=== PATIENT | male | born 1990 | race Two or more races ===

== ENCOUNTER 2017-09-16 12:18 | Emergency (ER) | payer SELFPAY ==
[2017-09-16 12:25] VITALS: BP 148/70; PULSE 58; TEMP 98; BMI 32.6
--- NOTE | 2017-09-16 13:25 | PDOC ---
History of Present Illness - General Chief Complaint: Injury Stated Complaint: RT FOOT INJURY Time Seen by Provider: 09/16/17 12:49 History Source: Patient Exam Limitations: No Limitations - History of Present Illness Initial Comments: 09/16/17 13:23 c/o feeling "pop" to foot last night playing basketball . pt applied ice last night . Past History - Past Medical History Allergies/Adverse Reactions: Allergies Allergy/AdvReac Type Severity Reaction Status Date / Time No Known Allergies Allergy Verified 09/16/17 12:25 Home Medications: Ambulatory Orders NK [No Known Home Medication] 09/16/17 Asthma: Yes - Immunization History Immunization Up to Date: Yes - Suicide/Smoking/Psychosocial Hx Smoking History: Never smoked Have you smoked in the past 12 months: No Number of Cigarettes Smoked Daily: 0 Hx Alcohol Use: No Drug/Substance Use Hx: No Substance Use Type: Marijuana *Physical Exam - Vital Signs Last Vital Signs Temp Pulse Resp BP Pulse Ox 98.0 F 58 L 16 148/70 100 09/16/17 12:23 09/16/17 12:23 09/16/17 12:23 09/16/17 12:23 09/16/17 12:23 - Physical Exam General Appearance: Yes: Nourished, Appropriately Dressed HEENT: positive: EOMI, EDER Extremity: positive: Normal Capillary Refill, Tender (right foot to the medial soft tissue area, no bony tenderness, nv intact) Integumentary: positive: Normal Color, Dry, Warm Neurologic: positive: Fully Oriented, Alert, Normal Mood/Affect, Normal Response , Motor Strength 5/5 Procedures - Splinting Cody Bandage: yes (hard sole shoe with cody placed to foot ) ED Treatment Course - RADIOLOGY Radiology Studies Ordered: Category Date Time Status ANKLE & FOOT-RIGHT* [RAD] Stat Radiology 09/16/17 12:49 Taken Medical Decision Making - Medical Decision Making 09/16/17 13:28 cc: foot injury xray is negative will place cody wrap and post op shoe follow up with ortho *DC/Admit/Observation/Transfer Diagnosis at time of Disposition: Strain of foot, right Qualifiers: Encounter type: initial encounter Qualified Code(s): S96.911A - Strain of unspecified muscle and tendon at ankle and foot level, right foot, initial encounter - Discharge Dispostion Disposition: HOME Condition at time of disposition: Good - Referrals Referrals: Oh,Smith K, MD [Staff Physician] - - Patient Instructions Additional Instructions: apply ice every 2hrs for 15 minutes for the next 2 days while awake take motrin 600mg (advil, ibuprofen or motrin all over the counter) every 8hrs for pain use the cody wrap for support for the next week or so follow with the orthopedist next week no strenuous activity - Post Discharge Activity
== END 2017-09-16 13:41 | disposition home or self-care (01) ==
LOC: JERFT 12:18
DX: S96.811A Strain of other specified muscles and tendons at ankle and foot level, right foot, initial encounter (principal); X50.9XXA Other and unspecified overexertion or strenuous movements or postures, initial encounter; Y93.67 Activity, basketball; Y92.310 Basketball court as the place of occurrence of the external cause; Y99.8 Other external cause status
CPT/HCPCS: 73610-TC-RT-FY; 73630-TC-RT-FY; 99281-25